=== PATIENT | female | born 1985 | race African-American/Black ===

== ENCOUNTER 2018-03-28 10:20 | Emergency (ER) | payer SELFPAY ==
[~2018-03-28] VITALS: Ht 167.6 cm; Wt 112.1 kg
[~2018-03-28 10:20] MED LIST: ADVIL,NUPRIN,M200 MG PO; ANTIVERT25 MG PO; CLONAZEPAM PO; CYMBALTA30 MG PO; FLEXERIL10 MG PO; LEVAQUIN750 MG PO; ORTHO CYCLEN1 TABLET PO; PREDNISONE20 MG PO; THERAGRAN1 TABLET PO; TOBRADEX ST EYE5 ML LEFT EYE; Tylenol Regular Stre PO; ULTRAM50 MG PO; VENTOLIN HFA18 GM IH; Zestoretic,Prinzide PO
[2018-03-28] MEDS ORDERED: MEDROL DOSEPAK4 MG PO (12:42)
[2018-03-28] MEDS ORDERED: NAPROSYN500 MG PO (12:42)
[2018-03-28] MEDS ORDERED: FLEXERIL10 MG PO (12:42)
[2018-03-28 12:57] VITALS: BP 136/74
== END 2018-03-28 12:57 | disposition home or self-care (01) ==
LOC: EME 10:20
DX: M79.672 Pain in left foot (principal); M54.40 Lumbago with sciatica, unspecified side; Z88.5 Allergy status to narcotic agent; Z88.6 Allergy status to analgesic agent
CPT/HCPCS: 73630; 99281; 99283; J1100

== ENCOUNTER 2018-05-15 12:14 | Emergency (ER) | payer SELFPAY ==
[~2018-05-15] VITALS: Ht 167.6 cm; Wt 112.3 kg
[~2018-05-15 12:14] MED LIST changes: +MEDROL DOSEPAK4 MG PO; +NAPROSYN500 MG PO
[2018-05-15] MEDS ORDERED: AMOXICILLIN500 M1 PO (15:38)
[2018-05-15 15:45] VITALS: BP 123/99
== END 2018-05-15 15:46 | disposition home or self-care (01) ==
LOC: EXP 12:14 → EME 12:14 → EXP 15:46
DX: J40 Bronchitis, not specified as acute or chronic (principal); F17.200 Nicotine dependence, unspecified, uncomplicated; F32.9 Major depressive disorder, single episode, unspecified; K21.9 Gastro-esophageal reflux disease without esophagitis; F41.9 Anxiety disorder, unspecified; Z88.5 Allergy status to narcotic agent; Z88.6 Allergy status to analgesic agent
CPT/HCPCS: 99281; 99283